=== PATIENT | female | born 1985 | race African-American/Black ===

== ENCOUNTER 2016-05-02 20:58 | Emergency (ER) | payer MEDICAID, OTHER ==
[~2016-05-02] VITALS: Ht 172.7 cm; Wt 140.0 kg
[~2016-05-02 20:58] MED LIST: ABRE10CR TOP; PRENCAP6 PO
[2016-05-02 21:02] VITALS: BP 171/73; PULSE 95; RESP 18; TEMP 98.6; O2SAT 99
[2016-05-02] MEDS ORDERED: AMOX500T PO (21:29)
[2016-05-02] MEDS ORDERED: AMOXICILLIN (TRIHYDRATE) 500 MG CAP PO ONE (21:30)
--- NOTE | 2016-05-02 21:32 | PD ---
HPI Chief Complaint: Cold / Flu Symptoms Time Seen by Provider: 21:30 Travel History International Travel<30 days: No Contact w/Intl Traveler<30days: No Traveled to known affect area: No History of Present Illness HPI 30-year-old black female presents to emergency Department with complaints of sore throat, left ear pain, subjective fever and chills, and congestion. Positive cough. No nausea vomiting. No abdominal pain or diarrhea. No dysuria or frequency. No rashes or lesions. She denies any myalgias or arthralgias. PFS Past Medical History Medical History: Denies Significant Hx Diabetes: No Tetanus Vaccination: < 5 Years Past Surgical History Surgical History: No Previous Surgery Social History Alcohol Use: No Tobacco Use: No Substance Use: Yes (MARIJUANA) Allergies-Medications (Allergen,Severity, Reaction): Coded Allergies: Latex (Verified Allergy, Severe, HIVES, 05/02/16) Reported Meds & Prescriptions Reported Meds & Active Scripts Active Abreva (Docosanol) 10 % Cre 10 % TOP BID Reported 1 ( Multivitamins) Cap 1 Cap PO DAILY Review of Systems Except as stated in HPI: all other systems reviewed are Neg Physical Exam Narrative GENERAL: Well-nourished, well-developed patient. SKIN: Warm and dry. HEAD: Normocephalic. EYES: No scleral icterus. No injection or drainage. NECK: Supple, trachea midline. No JVD or lymphadenopathy. CARDIOVASCULAR: Regular rate and rhythm without murmurs, gallops, or rubs. RESPIRATORY: Breath sounds equal bilaterally. No accessory muscle use. GASTROINTESTINAL: Abdomen soft, non-tender, nondistended. MUSCULOSKELETAL: No cyanosis, or edema. BACK: Nontender without obvious deformity. No CVA tenderness. Data Data Last Documented VS Vital Signs Date Time Temp Pulse Resp B/P Pulse Ox O2 Delivery O2 Flow Rate FiO2 05/02/16 21:02 98.6 95 18 171/73 99 Room Air Orders Amoxicillin (Trimox) (05/02/16 21:30) [facility] Medical Decision Making Medical Screen Exam Complete: Yes Emergency Medical Condition: Yes Medical Record Reviewed: Yes Differential Diagnosis MDM: High Differential diagnoses: Strep throat, viral pharyngitis, mono, peritonsillar abscess, retropharyngeal abscess, Miles's angina Narrative Course This is acute pharyngitis Patient is given amoxicillin 1 g by mouth. Diagnosis Primary Impression: Acute pharyngitis Qualified Code: J02.9 - Acute pharyngitis, unspecified etiology Patient Instructions: General Instructions Additional Instructions: Rest. Force fluids. Saltwater gargles. Tylenol and Advil. Chloraseptic [place] Cepastat lozenge. Amoxicillin. Follow-up with a primary care doctor in one week. Return to the ER if any problems. Med/Other Pt SpecificInfo: Prescription(s) given Scripts Amoxicillin 500 Mg Tab1,000 Mg PO BID #40 TAB Prov:Mark Gonzalez MD 05/02/16 Disposition: 01 DISCHARGE HOME Condition: Stable Donald Ocampo May 02, 2016 21:32
== END 2016-05-02 21:46 | disposition home or self-care (01) ==
LOC: NEPB 20:58
DX: J02.9 Acute pharyngitis, unspecified (principal); H92.02 Otalgia, left ear; R50.9 Fever, unspecified; R05 Cough
CPT/HCPCS: 99283